=== PATIENT | male | born 1960 | race Two or more races ===

== ENCOUNTER → 2020-12-07 | Outpatient (CLI) | payer OTHER | END | disposition home or self-care (01) | LOC: RAD 10:14 | PROVIDERS: ATTEND Family Medicine | DX: M47.813 Spondylosis without myelopathy or radiculopathy, cervicothoracic region (principal); M47.817 Spondylosis without myelopathy or radiculopathy, lumbosacral region | CPT/HCPCS: 72050; 72072; 72110 ==